=== PATIENT | male | born 1970 | race Caucasian/White ===

== ENCOUNTER 2018-05-11 08:03 | Day surgery (SDC) | payer OTHER ==
[~2018-05-11] VITALS: Ht 182.9 cm; Wt 136.1 kg
[2018-05-11] MEDS ORDERED: METF500T2 PO (08:35)
[2018-05-11] MEDS ORDERED: ATOR10TA PO (08:35)
[2018-05-11] MEDS ORDERED: LISI2.5T12 PO (08:35)
[2018-05-11] MEDS ORDERED: CEFAZOLIN SODIUM 1 GM/D5W PM 50 ML IV SCH (08:50)
[2018-05-11] MEDS ORDERED: BUPIVACAINE-MPF 0.25% 30 ML VIAL INJ ONE (09:11)
[2018-05-11] MEDS ORDERED: PROPOFOL 200 MG/20 ML VIAL IV ONE (09:31)
[2018-05-11] MEDS ORDERED: KETAMINE 500 MG/5 ML VIAL ONE (09:44)
[2018-05-11] MEDS ORDERED: MIDAZOLAM 2 MG/2 ML VIAL ONE (09:44)
[2018-05-11] MEDS ORDERED: LIDOCAINE MPF 1% - 5 mL VIAL 5 ML ONE (09:50)
[2018-05-11] MEDS ORDERED: fentaNYL 0.05 MG/ML VIAL ONE (09:51)
[2018-05-11] MEDS ORDERED: BLOOD GLUCOSE MONITORING 1 DEV DEV FS ONE (09:55)
[2018-05-11] MEDS ORDERED: ONDANSETRON 4 MG/2 ML VIAL IVP PRN (09:55)
[2018-05-11] MEDS ORDERED: HYDROmorphone 1 MG/ML AMP IVP PRN ×2 (09:55→10:25)
[2018-05-11] MEDS ORDERED: MORPHINE SULFATE 4 MG/ML SYR IV PRN (10:25)
[2018-05-11] MEDS ORDERED: HYDROcodone/APAP 5/325 MG 1 TAB TAB PO PRN (10:25)
[2018-05-11] MEDS ORDERED: ONDANSETRON 4 MG/2 ML VIAL IV PRN (10:25)
[2018-05-11] MEDS ORDERED: MORPHINE SULFATE 2 MG/ML SYR IVP PRN (10:25)
== END 2018-05-11 11:30 | disposition home or self-care (01) ==
LOC: MDS 08:03 → MMU 08:03 → MDS 11:30
PROVIDERS: ATTEND Surgery
DX: D17.1 Benign lipomatous neoplasm of skin and subcutaneous tissue of trunk (principal); E11.9 Type 2 diabetes mellitus without complications; I10 Essential (primary) hypertension; K21.9 Gastro-esophageal reflux disease without esophagitis; E66.01 Morbid (severe) obesity due to excess calories; Z68.41 Body mass index [BMI] 40.0-44.9, adult; E78.5 Hyperlipidemia, unspecified; Z79.84 Long term (current) use of oral hypoglycemic drugs; Z87.891 Personal history of nicotine dependence; Z79.899 Other long term (current) drug therapy
CPT/HCPCS: 21931; 71045; 82948; 93005; J0690; J2001; J2250; J2704; J3010; J3490; J7030

== ENCOUNTER 2020-09-13 19:00 | Emergency (ER) | payer OTHER ==
[~2020-09-13] VITALS: Ht 182.9 cm; Wt 136.1 kg
[~2020-09-13 19:00] MED LIST: ATOR10TA PO; LISI2.5T12 PO; METF500T2 PO
[2020-09-13 19:15] VITALS: BP 150/86
--- NOTE | 2020-09-13 19:18 | NUR ---
TO LOBBY A/W BED AMBULATORY
--- NOTE | 2020-09-13 19:28 | NUR ---
SEEN AND EXAMINED BY TRINH WITH ORDERS AND CARRIED OUT
--- NOTE | 2020-09-13 19:37 | NUR ---
PT TAKEN TO CHAIR A
[2020-09-13] MEDS ORDERED: NACL 0.9% 1,000 ML IV ONE (19:50)
--- NOTE | 2020-09-13 20:04 | NUR ---
PT MOVED TO ER BED 7
--- NOTE | 2020-09-13 20:16 | NUR ---
50 Y/O M PRESENTS TO ED C/O DIZZINESS, BODY PAINS, AND HAVING TO USE THE RESTROOM EVERY 30 MINS. PER PT, BLOOD SUGAR IS USUALLY HIGH WHEN HE IS UNDER STRESSFUL EVENTS SUCH "NOW WITH WORK." PT STATES THAT HE HAD A HIGH BLOOD SUGAR BEFORE BECAUSE HE WAS STRESSED. PER PT, HIS PCP TOLD HIM THAT "HE IS NOT DIABETIC AND DID NOT GIVE ANY MEDICATIONS." PT STATES, IF HE IS NOT STRESSED, BLOOD SUGAR IS USUALLY IN THE 120s. AAOX4, RR EVEN AND UNLABORED, VSS. IV PLACED PER DR'S ORDERS. PT ATTACHED TO BROOMMAKER AND PULSE OXIMETRY. BED LOCKED AND IN LOWEST POSITION, SIDE RAIL UPX1. WILL CONTINUE TO MONITOR. MHX: DENIES ALLERGIES: CODEINE
[2020-09-13 20:23] LABS: ANION GAP 14.2 (8-16); ASPARTATE AMINOTRANSFERASE 29 U/L (15-37); BILIRUBIN,DIRECT 0.2 mg/dL (0.0-0.3); CARBON DIOXIDE 24.2 mmol/L (21-32); CREATININE 1.4 mg/dL (0.6-1.3); POTASSIUM 4.4 mmol/L (3.5-5.1); TOTAL BILIRUBIN 0.7 mg/dL (0.0-1.0)
[2020-09-13 20:30] LABS: ACETONE, SERUM NEGATIVE (NEGATIVE)
[2020-09-13] MEDS ORDERED: KCL 20 MEQ/WATER INJ PREMIX 100 ML IV ONE (20:50)
[2020-09-13] MEDS ORDERED: INSULIN REGULAR, HUMAN 100 UNIT/ML VIAL IVP ONE (20:50)
--- NOTE | 2020-09-14 00:42 | NUR ---
Patient discharged with v/s stable. Written and verbal after care instructions given and explained. Patient alert, oriented and verbalized understanding of instructions. Ambulatory with steady gait. All questions addressed prior to discharge. ID band removed. Patient advised to follow up with PMD. Rx of GLIPIZIDE, METFORMIN given. Patient educated on indication of medication including possible reaction and side effects. Opportunity to ask questions provided and answered.
[2020-09-14 00:52] VITALS: BP 138/94
== END 2020-09-14 00:43 | disposition home or self-care (01) ==
LOC: MED 19:00
DX: E11.65 Type 2 diabetes mellitus with hyperglycemia (principal); I10 Essential (primary) hypertension; D17.1 Benign lipomatous neoplasm of skin and subcutaneous tissue of trunk; Z88.5 Allergy status to narcotic agent; Z79.899 Other long term (current) drug therapy
CPT/HCPCS: 36415; 80048; 80076; 82009; 82948; 96361; 96365; 96366; 96375; 99284; J1815; J3480; J7030